=== PATIENT | male | born 1970 | race African-American/Black ===

== ENCOUNTER → 2017-04-21 | Outpatient (CLI) | payer BC ==
[2015-06-06 15:30] VITALS: BP 136/79
[~2017-04-21] MED LIST: ASPI-482 PO; CLON1TAB3 PO; ESOM40CA PO; GLIM2TAB2 PO; IBUP-1060 PO; LANS15CA78 PO; LANS30CA PO; LINA145C PO; LISI-334 PO; LOVA20TA2 PO; LOVA40TA2 PO; METF500T4 PO; MULT-208 PO; OLME20TA19 PO; OLME5TAB4 PO; OXYC-327 PO; POLY17PO29 PO; SITA100T PO
--- NOTE | 2017-04-21 13:42 | KCIC ---
MR CERVICAL SPINE Indication: Neck pain with left-sided radiculopathy Comparison: None Technique: Sagittal T2, sagittal STIR, sagittal T1, and axial gradient echo imaging was obtained of the cervical spine. FINDINGS: Alignment and curvature are within normal limits. Vertebral body heights are maintained. Bone marrow signal is normal. Cord is normal in caliber with no signal abnormality identified. Visualized soft tissues of the neck are within normal limits. At C2-C3 there is no spinal stenosis. At C3-C4 there is no spinal stenosis. At C4-C5 there is a discussed by complex which minimally impresses upon the ventral surface of the cord. There is bilateral uncovertebral hypertrophy causing mild to moderate bilateral foraminal narrowing. At C5-6 there is a disc osteophyte complex which abuts the plexus of the cord but does not cause mass effect upon it. There is severe bilateral foraminal stenosis from facet and uncovertebral hypertrophy. Correlate for C6 radiculopathy symptoms. At C6-C7 there is a discussed by complex causing moderate mass effect upon the cord worse on the left. There is also severe left foraminal stenosis from uncovertebral hypertrophy. At C7-T1 there is no spinal stenosis. IMPRESSION: At C4-C5 there is minimal mass effect upon the cord with mild to moderate bilateral foraminal stenosis. At C5-6 there is mild mass effect upon the cord with severe bilateral foraminal stenosis. Correlate for C6 radicular symptoms. At C6-C7 there is mass effect upon the cord worse on the left. There is also severe left foraminal stenosis. Correlate for left C7 radiculopathy. Electronically signed by: Boris Bryan MD (04/21/2017 1:39 PM)
--- NOTE | 2017-04-21 16:57 | KCIC ---
MR LUMBAR SPINE Indication: Left-sided sciatica COMPARISON: None Technique: Sagittal T2, sagittal STIR, and sagittal T1-weighted images were obtained. Additional axial T1 and T2 weighted imaging was also performed. FINDINGS: Alignment and curvature are within normal limits. No compression deformities are identified. No abnormal bone marrow signal is seen. The conus is in normal position without abnormal signal. Paravertebral soft tissues are unremarkable. Visualized intra-abdominal contents are within normal limits. At L5-S1 there is a broad-based disc protrusion causing moderate to severe central spinal stenosis. There is also mild bilateral foraminal stenosis secondary to disc height loss and presence of a broad-based disc protrusion. L4-L5 there is a small disc bulge but no significant spinal stenosis. Remaining intervertebral disc levels are well maintained. IMPRESSION: There is moderate to severe central spinal stenosis at L5-S1 secondary to presence of a broad-based disc protrusion. There is also mild bilateral foraminal stenosis from disc height loss at this level. Electronically signed by: Boris Bryan MD (04/21/2017 3:33 PM)
== END | disposition home or self-care (01) ==
LOC: KCIC MRI 12:04
PROVIDERS: ATTEND Specialist
DX: M48.02 Spinal stenosis, cervical region (principal); M54.32 Sciatica, left side
CPT/HCPCS: 72141; 72148